=== PATIENT | male | born 1935 | race Caucasian/White ===

== ENCOUNTER 2016-11-24 14:50 | Emergency (ER) | payer OTHER ==
[~2016-11-24] VITALS: Ht 177.8 cm; Wt 77.8 kg
[~2016-11-24 14:50] MED LIST: ACETAMINOPHEN325 M1 PO; ALLOPURINOL300 MG PO; ASCORBIC ACID500 M3 PO; ASPIRIN81 M2 PO; CELECOXIB200 MG PO; COLACE100 MG PO; FERROUS SULFAT325 MG PO; FOLIC ACID1 MG PO; HYDROCODON-ACE1 EAC7 PO; JANUVIA100 MG PO; LIPITOR10 MG PO; LISINOPRIL2.5 MG PO; LOVENOX40 MG/0.4 SC; MILK OF MAGNESI10 ML PO; PERCOCET 5/31 TABLET PO; PLENDIL5 M1 PO; SENOKOT S,PE1 TABLET PO; THERAGRAN1 TABLET PO; VITAMIN D32000 UNI1 PO
[2016-11-24 15:37] LABS: BASOPHIL COUNT 0.1 K/uL (0-0.1); EOSINOPHIL COUNT 0.1 K/uL (0-0.3); IMMATURE GRANULOCYTE (%) 0.5 % (0.0-0.7); IMMATURE GRANULOCYTE COUNT 0.1 K/uL; INSTRUMENT ABS NEUTROPHIL CT 7.8 K/uL; LYMPHOCYTE COUNT 1.1 K/uL (1.0-2.8); MCH 30.8 PG (29.0-34.0); MCHC 33.6 G/DL (30.0-36.0); MCV 91.5 FL (86-99); MEAN PLAT.VOLUME 10.6 uM^3 (9.0-12.4); MONOCYTE (%) 7.1 % (3-12); MONOCYTE COUNT 0.7 K/uL (0-0.8); NEUTROPHIL COUNT 7.8 K/uL (1.8-6.4); PLATELET COUNT 270 K/uL (156-360); RBC DIS.WIDTH-SD 43.6 % (39-53); RED BLOOD COUNT 4.26 M/uL (4.00-5.50); WHITE BLOOD COUNT 9.8 K/uL (4.1-10.2)
[2016-11-24 15:48] LABS: CHLORIDE 107 mEq/L (99-109); POTASSIUM 4.2 mEq/L (3.7-5.4); SODIUM 138 mEq/L (136-147)
[2016-11-24 15:49] LABS: GLUCOSE 129 mg/dL (70-99)
[2016-11-24 15:51] LABS: ANION GAP 9 MEQ/L (2-14)
[2016-11-24 15:53] LABS: GFR ESTIMATE (CALCULATED) > 59 mL/min/
[2016-11-24 15:54] LABS: UREA NITROGEN (BUN) 21 mg/dL (9-23)
[2016-11-24 15:57] LABS: TROP-I INTERPRETATION NEGATIVE; TROPONIN-I < 0.01 ng/mL (0.0-0.30)
[2016-11-24 18:52] VITALS: BP 144/67
== END 2016-11-24 19:00 | disposition home or self-care (01) ==
LOC: EME → EDBD 14:50 → EME 14:50
PROVIDERS: Emergency Medicine
DX: S02.2XXA Fracture of nasal bones, initial encounter for closed fracture (principal); S01.511A Laceration without foreign body of lip, initial encounter; S61.211A Laceration without foreign body of left index finger without damage to nail, initial encounter; S61.412A Laceration without foreign body of left hand, initial encounter; W01.0XXA Fall on same level from slipping, tripping and stumbling without subsequent striking against object, initial encounter; Y93.K1 Activity, walking an animal; Y99.8 Other external cause status; I10 Essential (primary) hypertension; E11.9 Type 2 diabetes mellitus without complications; Z79.84 Long term (current) use of oral hypoglycemic drugs; Z87.891 Personal history of nicotine dependence; I45.10 Unspecified right bundle-branch block
CPT/HCPCS: 70450; 70486; 80048; 84484; 85025; 93005; 99281; 99285